=== PATIENT | male | born 1935 | race Caucasian/White ===

== ENCOUNTER 2016-11-10 10:30 | Outpatient (RCR) | payer MEDICARE, BC | END 2016-11-10 14:40 | disposition home or self-care (01) | LOC: PT 10:30 | DX: I63.8 Other cerebral infarction (principal); I69.228 Other speech and language deficits following other nontraumatic intracranial hemorrhage; I69.218 Other symptoms and signs involving cognitive functions following other nontraumatic intracranial hemorrhage; I69.211 Memory deficit following other nontraumatic intracranial hemorrhage; H53.9 Unspecified visual disturbance; R20.0 Anesthesia of skin ==

== ENCOUNTER → 2019-07-18 | Outpatient (CLI) | payer MEDICARE, BC ==
[2019-07-18 12:22] LABS: ALBUMIN 3.7 g/dL (3.4-4.8)
[2019-07-18 12:23] LABS: POTASSIUM 4.5 mmol/L (3.5-5.1); SODIUM 140 mmol/L (136-145)
[2019-07-18 12:24] LABS: CALCIUM 8.8 mg/dL (8.3-10.5)
[2019-07-18 12:25] LABS: GLUCOSE 92 mg/dL (75-110); TOTAL PROTEIN 6.2 g/dL (6.2-8.1)
[2019-07-18 12:26] LABS: CARBON DIOXIDE 27 mmol/L (23-31)
[2019-07-18 12:30] LABS: AST-SGOT 20 U/L (5-34)
[2019-07-18 12:32] LABS: ALT/SGPT 23 U/L (0-55)
[2019-07-18 12:48] LABS: EOS # 0.1 (0.04-0.40); EOS % 0.9 % (0.0-4.0); HEMATOCRIT 43.8 % (42.0-52.0); HEMOGLOBIN 14.3 g/dL (13.5-18.0); LYMPH# 1.6 (1.50-4.00); MEAN CELL VOLUME 97 fl (78-100); MEAN CORPUSCULAR HEMOGLOBIN 32 pg (27-31); MEAN CORPUSCULAR HGB CONC 33 g/dL (33-37); MEAN PLATELET VOLUME 11.4 fl (7.4-10.4); MONO # 0.6 (0.20-0.80); NEU # 3.3 (1.40-6.50); PLATELET COUNT 214 K/mm3 (130-400); RED BLOOD COUNT 4.52 M/mm3 (4.20-5.60); RED CELL DISTRIBUTION WIDTH 12.5 % (11.5-14.5); WHITE BLOOD COUNT 5.6 K/mm3 (4.8-10.8)
[2019-07-18 13:50] LABS: ERYTHROCYTE SEDIMENTATION RATE 3 mm/hr (0-20)
[2019-07-18 22:29] LABS: TESTOSTERONE 339 ng/dL (221-716)
== END ==
LOC: LAB 11:46
PROVIDERS: Internal Medicine
DX: I10 Essential (primary) hypertension (principal); N52.9 Male erectile dysfunction, unspecified; R20.2 Paresthesia of skin; D64.9 Anemia, unspecified

== ENCOUNTER → 2019-09-23 | Outpatient (CLI) | payer MEDICARE, BC ==
[2019-09-23 16:33] LABS: HEMATOCRIT 45.7 % (42.0-52.0); HEMOGLOBIN 14.8 g/dL (13.5-18.0); MEAN CELL VOLUME 96 fl (78-100); MEAN CORPUSCULAR HEMOGLOBIN 31 pg (27-31); MEAN CORPUSCULAR HGB CONC 32 g/dL (33-37); MEAN PLATELET VOLUME 10.3 fl (7.4-10.4); PLATELET COUNT 174 K/mm3 (130-400); RED BLOOD COUNT 4.77 M/mm3 (4.20-5.60); RED CELL DISTRIBUTION WIDTH 12.9 % (11.5-14.5); WHITE BLOOD COUNT 4.8 K/mm3 (4.8-10.8)
[2019-09-23 16:46] LABS: ALBUMIN 3.9 g/dL (3.4-4.8); POTASSIUM 4.1 mmol/L (3.5-5.1)
[2019-09-23 16:48] LABS: CALCIUM 8.9 mg/dL (8.3-10.5)
[2019-09-23 16:49] LABS: TOTAL PROTEIN 6.2 g/dL (6.2-8.1)
[2019-09-23 16:51] LABS: TOTAL BILIRUBIN 1.6 mg/dL (0.2-1.2)
[2019-09-23 16:55] LABS: LYMPHOCYTE 34 % (20-51); NEUTROPHILS 52 % (42-75)
[2019-09-23 16:56] LABS: MONOCYTE 11 % (3-10)
== END ==
LOC: RAD 15:34 → AMSURD 15:34
PROVIDERS: Internal Medicine
DX: I48.0 Paroxysmal atrial fibrillation (principal); I10 Essential (primary) hypertension

== ENCOUNTER → 2019-09-24 | Outpatient (CLI) | payer MEDICARE, BC | LOC: VAS 15:13 → RAD 15:45 | DX: I48.91 Unspecified atrial fibrillation (principal); I10 Essential (primary) hypertension; I34.0 Nonrheumatic mitral (valve) insufficiency ==

== ENCOUNTER → 2020-06-05 | Outpatient (CLI) | payer MEDICARE ==
[2020-06-05 16:27] LABS: ERYTHROCYTE SEDIMENTATION RATE 6 mm/hr (0-20)
[2020-06-05 17:39] LABS: HEMATOCRIT 45.2 % (42.0-52.0); HEMOGLOBIN 14.6 g/dL (13.5-18.0); MEAN CELL VOLUME 97 fl (78-100); MEAN CORPUSCULAR HEMOGLOBIN 31 pg (27-31); MEAN CORPUSCULAR HGB CONC 32 g/dL (33-37); MEAN PLATELET VOLUME 11.8 fl (7.4-10.4); PLATELET COUNT 159 K/mm3 (130-400); RED BLOOD COUNT 4.68 M/mm3 (4.20-5.60); RED CELL DISTRIBUTION WIDTH 13.6 % (11.5-14.5); WHITE BLOOD COUNT 3.9 K/mm3 (4.8-10.8)
[2020-06-05 17:43] LABS: ALBUMIN 3.9 g/dL (3.4-4.8); LYMPHOCYTE 33 % (20-51); POTASSIUM 4.3 mmol/L (3.5-5.1)
[2020-06-05 17:44] LABS: CALCIUM 8.7 mg/dL (8.3-10.5); MONOCYTE 15 % (3-10); NEUTROPHILS 50 % (42-75)
[2020-06-05 17:45] LABS: TOTAL PROTEIN 6.5 g/dL (6.2-8.1)
[2020-06-05 17:47] LABS: TOTAL BILIRUBIN 2.3 mg/dL (0.2-1.2)
== END ==
LOC: RAD 14:35 → LAB 14:35
PROVIDERS: Internal Medicine
DX: C61 Malignant neoplasm of prostate (principal); M16.0 Bilateral primary osteoarthritis of hip; M51.36 Other intervertebral disc degeneration, lumbar region; I10 Essential (primary) hypertension; I48.91 Unspecified atrial fibrillation; E78.2 Mixed hyperlipidemia; K90.9 Intestinal malabsorption, unspecified

== ENCOUNTER → 2020-06-12 | Outpatient (CLI) | payer MEDICARE | LOC: RAD 10:00 | DX: K80.20 Calculus of gallbladder without cholecystitis without obstruction (principal); N32.89 Other specified disorders of bladder; R17 Unspecified jaundice; N20.0 Calculus of kidney; Z90.79 Acquired absence of other genital organ(s) | CPT/HCPCS: Q9967 ==